=== PATIENT | male | born 1935 | race Caucasian/White ===

== ENCOUNTER 2025-03-11 16:18 | Inpatient (IN) | payer MEDICARE ==
[~2025-03-11] VITALS: Ht 198.1 cm; Wt 98.9 kg
[2025-03-11 17:08] LABS: BASOPHILS # (AUTO) 0.1 K/uL (0.0-0.2); BASOPHILS % (AUTO) 0.8 % (0.0-2.0); EOSINOPHILS # (AUTO) 0.3 K/uL (0.0-0.7); EOSINOPHILS % (AUTO) 2.5 % (0.0-6.0); HEMATOCRIT 39 % (39-51); LYMPHOCYTES % (AUTO) 16.3 % (20.0-44.0); MEAN CORPUSCULAR HEMOGLOBIN 34 PG (26.0-33.0); MEAN CORPUSCULAR HGB CONC 33 g/dl (31.0-36.0); MEAN CORPUSCULAR VOLUME 102 fL (80-96); MONOCYTES # (AUTO) 0.9 K/uL (0.1-1.30); NEUTROPHILS % (AUTO) 73.4 % (43.0-81.0); PLATELET COUNT (AUTO) 345 K/uL (150-450); RED BLOOD CELL COUNT(AUTO) 3.83 MIL/uL (4.5-6.0); RED CELL DISTRIBUTION WIDTH 16.8 % (11.5-15.0); WHITE BLOOD COUNT (AUTO) 12.3 K/uL (4.3-11.0)
[2025-03-11 17:19] LABS: CARBON DIOXIDE 24 mmol/L (21-32); CHLORIDE 101 mmol/L (98-107); CREATININE 1.6 mg/dL (0.6-1.3); GLUCOSE 119 mg/dL (74-106); POTASSIUM 4.3 mmol/L (3.5-5.1); SODIUM SERUM 134 mmol/L (136-145); UREA NITROGEN, BLOOD 22 mg/dL (7-18)
[2025-03-11] MEDS ORDERED: ATOR80TA PO (17:51)
[2025-03-11] MEDS ORDERED: BISA10SU11 RC (17:51)
[2025-03-11] MEDS ORDERED: MAGN400O6 PO (17:51)
[2025-03-11] MEDS ORDERED: ACET325T53 PO (17:51)
[2025-03-11] MEDS ORDERED: LOPE2CAP PO (17:51)
[2025-03-11] MEDS ORDERED: METH500T6 PO (17:51)
[2025-03-11] MEDS ORDERED: CLOP75TA15 PO (17:51)
[2025-03-11] MEDS ORDERED: MAG30ORA PO (17:51)
[2025-03-11] MEDS ORDERED: ASPI-1420 PO (17:51)
[2025-03-11] MEDS ORDERED: TORS20TA3 PO (17:51)
[2025-03-11] MEDS ORDERED: GABA-532 PO (17:51)
[2025-03-11] MEDS ORDERED: POTA-88 PO (17:51)
[2025-03-11] MEDS ORDERED: LOSA25TA27 PO (17:51)
[2025-03-11] MEDS: CEFEPIME 1 GM in IV D5W 50 ML IV ONE (17:58)
[2025-03-11] MEDS: VANCOMYCIN 1 GM in IV D5W 250 ML IV ONE (18:28)
[2025-03-11] MEDS ORDERED: NITROGLYCERIN 0.4 MG/TAB BOTTLE SL ONE (18:30)
[2025-03-11] MEDS ORDERED: BISACODYL SUPP (10 MG) 10 MG/SUPP.RECT SUPP.RECT RC PRN (18:30)
[2025-03-11] MEDS ORDERED: MAG HYDROX/AL HYDROX/SIMETH 30 ML UDC PO PRN (18:30)
[2025-03-11] MEDS ORDERED: ACETAMINOPHEN 325 MG TABLET PO PRN (18:30)
[2025-03-11] MEDS ORDERED: LOPERAMIDE HCL (2 MG CAP) 2 MG CAPSULE PO SCH (18:30)
[2025-03-11] MEDS ORDERED: MAGNESIUM HYDROXIDE 30 ML UDC PO PRN (18:30)
[2025-03-11] MEDS ORDERED: METHOCARBAMOL (500MG) 500 MG TABLET PO PRN (18:30)
[2025-03-11] MEDS ORDERED: Z GUARD REMEDY 4 OZ OINT TP PRN (18:30)
[2025-03-11] MEDS ORDERED: ONDANSETRON HCL/PF 4 MG/2 ML VIAL IVP PRN (18:30)
[2025-03-11] MEDS: ATORVASTATIN 40 MG TABLET PO SCH (22:00)
[2025-03-11 23:29] VITALS: BP 126/67; TEMP 98.2; O2SAT 98
[2025-03-12] VITALS: BP 118/59; TEMP 97.9; O2SAT 95
[2025-03-12 04:00] VITALS: BP 117/63; TEMP 97.9; O2SAT 100
[2025-03-12 06:37] LABS: BASOPHILS % (AUTO) 0.5 % (0.0-2.0); EOSINOPHILS # (AUTO) 0.3 K/uL (0.0-0.7); EOSINOPHILS % (AUTO) 3.8 % (0.0-6.0); HEMATOCRIT 33 % (39-51); HEMOGLOBIN 11.2 g/dL (13.5-17.5); LYMPHOCYTES # (AUTO) 1.6 K/uL (0.8-4.8); LYMPHOCYTES % (AUTO) 19.1 % (20.0-44.0); MEAN CORPUSCULAR HEMOGLOBIN 34 PG (26.0-33.0); MEAN CORPUSCULAR HGB CONC 35 g/dl (31.0-36.0); MEAN CORPUSCULAR VOLUME 100 fL (80-96); MONOCYTES # (AUTO) 0.6 K/uL (0.1-1.30); MONOCYTES % (AUTO) 7.2 % (2.0-12.0); NEUTROPHILS # (AUTO) 5.8 K/uL (1.8-8.9); NEUTROPHILS % (AUTO) 69.4 % (43.0-81.0); PLATELET COUNT (AUTO) 284 K/uL (150-450); RED BLOOD CELL COUNT(AUTO) 3.25 MIL/uL (4.5-6.0); RED CELL DISTRIBUTION WIDTH 16.2 % (11.5-15.0); WHITE BLOOD COUNT (AUTO) 8.3 K/uL (4.3-11.0)
[2025-03-12 06:47] LABS: CALCIUM, SERUM 8.6 mg/dL (8.5-10.1); CREATININE 1.4 mg/dL (0.6-1.3); MAGNESIUM 2.6 mg/dL (1.8-2.4); PHOSPHORUS 3.7 mg/dL (2.5-4.9); POTASSIUM 4.1 mmol/L (3.5-5.1)
[2025-03-12 08:00] VITALS: BP_SYST 117; BP_SYST 125; BP_DIAS 63; BP_DIAS 66; TEMP 97.9; TEMP 98.2; O2SAT 100; O2SAT 96
[2025-03-12] MEDS: GABAPENTIN 100 MG CAPSULE PO SCH (08:28)
[2025-03-12] MEDS: ASPIRIN EC 81 MG TABLET.DR PO SCH (08:28)
[2025-03-12] MEDS: CEFEPIME 2 GM in IV D5W 100 ML IV SCH (08:29)
[2025-03-12] MEDS: POTASSIUM CHLORIDE 20 MEQ TAB.PRT.SR PO SCH (08:29)
[2025-03-12] MEDS: CLOPIDOGREL BISULFATE 75 MG TABLET PO SCH (08:29)
[2025-03-12] MEDS: LOSARTAN POTASSIUM 25 MG TABLET PO SCH (08:29)
[2025-03-12] MEDS: PANTOPRAZOLE 40 MG TABLET.DR PO SCH (08:29)
[2025-03-12] MEDS ORDERED: TORSEMIDE 20 MG TABLET PO SCH (09:00)
[2025-03-12 12:00] VITALS: BP 118/63; TEMP 97.7; O2SAT 98
[2025-03-12 15:48] LABS: APPEARANCE,URINE CLOUDY (CLEAR); BILIRUBIN,URINE NEGATIVE (NEGATIVE); BLOOD, URINE 2+ Ery/uL (NEGATIVE); COLOR,URINE YELLOW (YELLOW); KETONES,URINE NEGATIVE (NEGATIVE); LEUKOCYTE ESTERASE ,URINE 3+ (NEGATIVE); NITRITE, URINE NEGATIVE (NEGATIVE); PH,URINE 6.5 (5.0-8.0); PROTEIN,URINE 2+ mg/dl (NEGATIVE); UGLUCOSE 1+ mg/dL (NEGATIVE)
[2025-03-12 15:56] LABS: WBC,URINE TOO NUMEROUS TO COUN /HPF (0-3)
[2025-03-12 15:58] LABS: ADD URINE CULTURE YES; BACTERIA,URINE Moderate /HPF (None Seen)
[2025-03-12 16:00] VITALS: BP 138/67; TEMP 97.6; O2SAT 96
[2025-03-12 16:01] LABS: SQUAMOUS EPITHELIAL CELL,UR None Seen /HPF (None Seen)
[2025-03-12 20:00] VITALS: BP 123/56; TEMP 97.9; O2SAT 97
[2025-03-13] VITALS: BP 116/58; TEMP 97.9; O2SAT 95
[2025-03-13 04:00] VITALS: BP 119/63; TEMP 97.9; O2SAT 96
[2025-03-13] MEDS ORDERED: CEFU250T85 PO (07:56)
[2025-03-13 08:00] VITALS: BP 138/70; TEMP 97.9; O2SAT 94
[2025-03-13 12:00] VITALS: BP 142/66; TEMP 97.9; O2SAT 97
[2025-03-13 13:55] VITALS: BP 103/89; TEMP 97.9; O2SAT 99
== END 2025-03-13 14:02 | DRG 302 ==
LOC: ER 16:24 → EDBD 16:24 → TELE1 18:30
PROVIDERS: ADMIT Nurse Practitioner Acute Care; ATTEND Nurse Practitioner Acute Care
DX: I25.10 Atherosclerotic heart disease of native coronary artery without angina pectoris (principal); G93.41 Metabolic encephalopathy; D68.59 Other primary thrombophilia; I50.30 Unspecified diastolic (congestive) heart failure; N17.9 Acute kidney failure, unspecified; N39.0 Urinary tract infection, site not specified; I13.0 Hypertensive heart and chronic kidney disease with heart failure and stage 1 through stage 4 chronic kidney disease, or unspecified chronic kidney disease; E66.01 Morbid (severe) obesity due to excess calories; E78.5 Hyperlipidemia, unspecified; N18.9 Chronic kidney disease, unspecified; Z74.09 Other reduced mobility; F02.80 Dementia in other diseases classified elsewhere, unspecified severity, without behavioral disturbance, psychotic disturbance, mood disturbance, and anxiety; G30.9 Alzheimer's disease, unspecified; G62.89 Other specified polyneuropathies; R73.03 Prediabetes; Z68.25 Body mass index [BMI] 25.0-25.9, adult; B96.89 Other specified bacterial agents as the cause of diseases classified elsewhere
CPT/HCPCS: 36415; 71045-TC; 76770-TC; 80048-TC; 80061-TC; 81001; 83735-TC; 83880; 84100-TC; 84484-TC; 85025-TC; 87081-TC; 87086-TC; 93307-TC; 97110-TC; 97116-TC; 97530-TC; 97535-TC; A4223; G0378; J0692; J3370; J7030; J7050; J7060